=== PATIENT | female | born 1940 | race Caucasian/White ===

== ENCOUNTER → 2016-10-28 | Outpatient (CLI) | payer MEDICARE, MEDICAID ==
[~2016-10-28] MED LIST: AMARYL2 MG PO; AMITRIPTYLINE H10 M1 PO; AMLODIPINE BESYL5 MG PO; ASPIRIN81 M1; ATIVAN1 MG PO; ETODOLAC400 M1 PO; FLONASE ALLERG9.9 ML NS; FUROSEMIDE20 M1 PO; KCL; KLOR-CON 1010 ME1 PO; LISINOPRIL AND1 TA2; LORAZEPAM1 MG PO; LOSARTAN POTASS1 TA5 PO; MECLIZINE HCL12.5 MG PO; METFORMIN HCL500 MG PO; METFORMIN750 MG PO; METOPROLOL SR100 MG; METOPROLOL TART50 M1 PO; NAPROSYN500 MG; NEURONTIN300 MG PO; NORVASC10 MG; NOVOFINE DEVI; NOVOLOG MI100 UNIT/1 SQ; NOVOLOG100 U/ML; OMEPRAZOLE D/R20 MG PO; PRAVACHOL40 MG; SIMVASTATIN10 MG PO; XANAX XR0.5 MG; XANAX0.5 MG; ZITHROMAX250 MG PO; ZYRTEC10 MG PO
== END | disposition home or self-care (01) ==
LOC: RAD 17:24
DX: J44.9 Chronic obstructive pulmonary disease, unspecified (principal); R06.2 Wheezing; R05 Cough; R06.02 Shortness of breath

== ENCOUNTER → 2017-08-05 | Outpatient (CLI) | payer MEDICARE, MEDICAID | END | disposition home or self-care (01) | LOC: RAD 15:34 | DX: J98.11 Atelectasis (principal); J98.4 Other disorders of lung; E55.9 Vitamin D deficiency, unspecified; I10 Essential (primary) hypertension; E11.9 Type 2 diabetes mellitus without complications; Z87.891 Personal history of nicotine dependence ==

== ENCOUNTER 2017-10-29 20:56 | Emergency (ER) | payer MEDICARE, MEDICAID ==
[~2017-10-29] VITALS: Wt 108.9 kg
--- NOTE | ~2017-10-29 | EKG ---
[place], [place] ELECTROCARDIOGRAM REPORT NAME: DAVID ELKINS UNIT #: [id number] ROOM: DOCTOR: YULIANA ROSADO,PARDEEP BIRTHDATE: [birth year] DOS: 10/29/2017 TIME: 2102 hours. IMPRESSION: 1. Sinus rhythm. 2. Lateral ST-T changes. 3. Poor R-wave progression. 4. Normal QT interval. PARDEEP BRIDGES MD CM:EKGRPT:ELECTROCARDIOGRAM REPORT [id number] PARDEEP BRIDGES MD
[2017-10-29] MEDS ORDERED: HYDROXYZINE HCL25 M1 PO (21:17)
[2017-10-29] MEDS ORDERED: FLUOXETINE HYDR20 M1 PO (21:21)
[2017-10-29 21:29] LABS: BASO % 0.3 % (0.0-1.0); EOS # 0.1 10*3/uL (0.0-0.4); EOS % 0.7 % (1.0-4.0); HEMATOCRIT 38.6 % (37.0-47.0); HEMOGLOBIN 12.2 g/dl (12.0-16.0); LYMPH # 1.1 10*3/uL (1.3-4.4); LYMPH % 14.6 % (27.0-41.0); MEAN CELL VOLUME 80.4 fl (81.0-99.0); MEAN CORPUSCULAR HGB 25.4 pg (27.0-31.0); MEAN CORPUSCULAR HGB CONC 31.6 g/dl (33.0-37.0); MEAN PLATELET VOLUME 10.3 fl (9.6-12.3); MONO # 0.3 10*3/uL (0.1-1.0); MONO % 3.9 % (3.0-9.0); NEUT # 5.7 10*3/uL (2.3-7.9); NEUT % 80.1 % (47.0-73.0); PLATELET COUNT AUTOMATED 308 10*3/uL (130-400); RED CELL DISTRI WIDTH 14.8 % (0-14.5); WHITE BLOOD COUNT 7.2 10*3/uL (4.8-10.8)
[2017-10-29 21:39] LABS: ACT PARTIAL THROMBO TIME 22.1 SECONDS (20.8-31.5); INTERNATIONAL NORM RATIO 0.9 (2.0-3.5)
[2017-10-29 21:45] LABS: ALBUMIN 3.5 gm/dl (3.1-4.5); CREATININE 1.59 mg/dL (0.55-1.02); POTASSIUM 4.4 mmol/L (3.5-5.1); TOTAL PROTEIN 7.3 gm/dL (6.4-8.2)
[2017-10-29 21:47] LABS: TROPONIN I 10.5 ng/ml (<0.045)
== END 2017-10-30 01:05 | disposition short-term general hospital (02) ==
LOC: ED 20:56
PROVIDERS: Emergency Medicine
DX: I21.4 Non-ST elevation (NSTEMI) myocardial infarction (principal); Z79.899 Other long term (current) drug therapy; Z79.4 Long term (current) use of insulin; Z88.2 Allergy status to sulfonamides

== ENCOUNTER 2017-11-26 08:26 | Inpatient (IN) | payer MEDICARE, MEDICAID ==
[2017-11-26] VITALS (7 sets, daily range): BP systolic 112–160; BP diastolic 52–65
[~2017-11-26] VITALS: Ht 154.9 cm; Wt 103.6 kg
--- NOTE | ~2017-11-26 | CON ---
[place], [place] REPORT OF CONSULTATION NAME: DAVID ELKINS UNIT #: [id number] ROOM: 512 DOCTOR: ELIECER ROSADOCHRIS BIRTHDATE: [birth year] DOS: 11/26/2017 REASON FOR CONSULTATION: Heartburn with a known history of recent myocardial infarction and stent placement. HISTORY OF PRESENT ILLNESS: The patient is an elderly female 77-year-old with recent stent placement with a non-STEMI about [address] Miller; woke up this morning with chest burning. The patient took nitroglycerin without relief and came to the Emergency Room and she was given nitro and also GI cocktail and since that time, she is feeling better. The patient states that this is different than what she had ____. The patient had no acute EKG changes suggestion of myocardial injury or infarction. PAST MEDICAL HISTORY: Hypertension, hyperlipidemia, diabetes mellitus, recent stent placement, coronary artery disease, aneurysm, and CVA. MEDICATIONS: The patient is on metoprolol, furosemide, metformin, amlodipine, gabapentin, losartan, Imdur and clopidogrel. ALLERGIES: None. SOCIAL HISTORY: Former smoker. REVIEW OF SYSTEMS: CONSTITUTIONAL: No fever, no chills. HEENT: No visual disturbances or hearing problems. CARDIOVASCULAR: As per HPI. GASTROINTESTINAL: No nausea, no vomiting. GENITOURINARY: No dysuria, hematuria. NEUROLOGIC: Stable. PHYSICAL EXAMINATION: GENERAL: The patient is alert, oriented x 3. HEENT: Unremarkable. NECK: Supple, no JVD. LUNGS: Clear. HEART: Sounds are regular. ABDOMEN: Soft, obese. EXTREMITIES: Intact pulses. NEUROLOGIC: Stable. LABORATORY DATA: Hemoglobin 11.6, hematocrit is 36, and platelet count is normal. Creatinine is 1.45. INR is 0.9 and BUN is 28. Troponin is normal. EKG reported normal, but I do not see that in the chart. I am going to review that. IMPRESSION: The patient with recent stent placement with heartburn. The patient states that it is different than before. RECOMMENDATIONS: Increase the nitroglycerin, Imdur from 30 to 60 mg. Also add [place], [place] REPORT OF CONSULTATION NAME: ADVID ELKINS UNIT #: [id number] ROOM: 512 DOCTOR: CHRIS GONZÁLES MD BIRTHDATE: [birth year] PPI. Do serial enzymes. Monitor EKGs very closely. Rule out CA protocol. Continue the aspirin, Plavix, beta blockers, lisinopril, PARMINDER inhibitors, lipid lowering agents, core measures and I will follow up. Try to get the intervention report from [place]. CHRIS GONZÁLES MD CM:CONSTR:REPORT OF CONSULTATION 1039 11/26/17 1315 interface
[~2017-11-26 08:26] MED LIST changes: +FLUOXETINE HYDR20 M1 PO; +HYDROXYZINE HCL25 M1 PO
[2017-11-26 08:45] LABS: BASO % 0.4 % (0.0-1.0); EOS # 0.1 10*3/uL (0.0-0.4); HEMOGLOBIN 11.6 g/dl (12.0-16.0); LYMPH # 1.2 10*3/uL (1.3-4.4); LYMPH % 25.7 % (27.0-41.0); MEAN CELL VOLUME 80.4 fl (81.0-99.0); MEAN CORPUSCULAR HGB 25.9 pg (27.0-31.0); MEAN CORPUSCULAR HGB CONC 32.2 g/dl (33.0-37.0); MEAN PLATELET VOLUME 9.5 fl (9.6-12.3); MONO # 0.4 10*3/uL (0.1-1.0); MONO % 8.4 % (3.0-9.0); NEUT # 2.9 10*3/uL (2.3-7.9); NEUT % 62.1 % (47.0-73.0); PLATELET COUNT AUTOMATED 243 10*3/uL (130-400); RED BLOOD COUNT 4.48 10*6/uL (4.10-5.10); RED CELL DISTRI WIDTH 15.3 % (0-14.5); WHITE BLOOD COUNT 4.6 10*3/uL (4.8-10.8)
[2017-11-26 08:55] LABS: ACT PARTIAL THROMBO TIME 22.8 SECONDS (20.8-31.5); INTERNATIONAL NORM RATIO 0.9 (2.0-3.5)
[2017-11-26 09:02] LABS: ALBUMIN 3.6 gm/dl (3.1-4.5); ALKALINE PHOSPHATASE 73 U/L (45-117); BUN 28 mg/dl (7-24); CHLORIDE 102 mmol/L (98-107); CREATININE 1.45 mg/dL (0.55-1.02); POTASSIUM 4.2 mmol/L (3.5-5.1); SGOT/AST 16 IU/L (3-35); SGPT/ALT 24 U/L (12-78); SODIUM 138 mmol/L (136-145); TOTAL PROTEIN 7.1 gm/dL (6.4-8.2)
[2017-11-26 09:06] LABS: TROPONIN I < 0.015 ng/ml (<0.045)
[2017-11-26] MEDS ORDERED: NEURONTIN400 MG PO (09:42)
[2017-11-26] MEDS ORDERED: ISOSORBIDE MONO30 MG PO (09:45)
[2017-11-26] MEDS ORDERED: LIPITOR40 MG PO (09:46)
[2017-11-26] MEDS ORDERED: CLOPIDOGREL75 MG PO (09:46)
[2017-11-26] MEDS ORDERED: LOPRESSOR25 MG PO (09:48)
[2017-11-26] MEDS ORDERED: ASPIRIN81 M1 PO (11:16)
[2017-11-26] MEDS ORDERED: AMARYL4 MG PO (11:22)
[2017-11-26] MEDS ORDERED: HYDROXYZINE HCL25 MG PO (11:24)
[2017-11-26] MEDS ORDERED: IMDUR SA60 M1 PO (15:08)
[2017-11-26] MEDS ORDERED: NITROSTAT0.4 MG SL (15:08)
[2017-11-26 15:15] LABS: BILIRUBIN NEGATIVE (NEGATIVE); BLOOD NEGATIVE (NEGATIVE); CLARITY CLEAR (CLEAR); COLOR YELLOW (YELLOW); GLUCOSE NEGATIVE (NEGATIVE); KETONE NEGATIVE (NEGATIVE); LEUKO ESTERASE 1+ (NEGATIVE); NITRITE NEGATIVE (NEGATIVE); SPECIFIC GRAVITY 1.015 (1.005-1.030)
[2017-11-26 15:29] LABS: EPITHELIAL CELLS 0-2; RBC 0-2 rbc/hpf (0-2)
[2017-11-26 15:30] LABS: BACTERIA 2+
== END 2017-11-26 16:25 | disposition home or self-care (01) | DRG 205 ==
LOC: ED 08:26 → EDHOLD 09:35 → 5E 09:42
PROVIDERS: Emergency Medicine; Internal Medicine
DX: M94.0 Chondrocostal junction syndrome [Tietze] (principal); N17.0 Acute kidney failure with tubular necrosis; J18.9 Pneumonia, unspecified organism; Z68.41 Body mass index [BMI] 40.0-44.9, adult; E11.42 Type 2 diabetes mellitus with diabetic polyneuropathy; E11.65 Type 2 diabetes mellitus with hyperglycemia; D50.9 Iron deficiency anemia, unspecified; D72.819 Decreased white blood cell count, unspecified; D72.810 Lymphocytopenia; I25.10 Atherosclerotic heart disease of native coronary artery without angina pectoris; I10 Essential (primary) hypertension; E78.5 Hyperlipidemia, unspecified; F41.9 Anxiety disorder, unspecified; K21.9 Gastro-esophageal reflux disease without esophagitis; E66.01 Morbid (severe) obesity due to excess calories; Z87.891 Personal history of nicotine dependence; Z82.49 Family history of ischemic heart disease and other diseases of the circulatory system; Z79.4 Long term (current) use of insulin; Z80.3 Family history of malignant neoplasm of breast; Z88.2 Allergy status to sulfonamides; Z79.899 Other long term (current) drug therapy; Z79.82 Long term (current) use of aspirin; Z95.5 Presence of coronary angioplasty implant and graft; Z90.49 Acquired absence of other specified parts of digestive tract; I25.2 Old myocardial infarction; Z83.3 Family history of diabetes mellitus; Z82.3 Family history of stroke

== ENCOUNTER → 2018-01-11 | Outpatient (CLI) | payer MEDICARE, MEDICAID ==
[~2018-01-11] MED LIST changes: +AMARYL4 MG PO; +ASPIRIN81 M1 PO; +CLOPIDOGREL75 MG PO; +HYDROXYZINE HCL25 MG PO; +IMDUR SA60 M1 PO; +ISOSORBIDE MONO30 MG PO; +LIPITOR40 MG PO; +LOPRESSOR25 MG PO; +NEURONTIN400 MG PO; +NITROSTAT0.4 MG SL
[2018-01-11 09:38] LABS: BASO % 0.4 % (0.0-1.0); EOS # 0.2 10*3/uL (0.0-0.4); EOS % 3.4 % (1.0-4.0); HEMATOCRIT 36.7 % (37.0-47.0); HEMOGLOBIN 11.6 g/dl (12.0-16.0); LYMPH # 1.2 10*3/uL (1.3-4.4); LYMPH % 24.9 % (27.0-41.0); MEAN CELL VOLUME 81.9 fl (81.0-99.0); MEAN CORPUSCULAR HGB 25.9 pg (27.0-31.0); MEAN CORPUSCULAR HGB CONC 31.6 g/dl (33.0-37.0); MEAN PLATELET VOLUME 9.7 fl (9.6-12.3); MONO # 0.4 10*3/uL (0.1-1.0); MONO % 7.5 % (3.0-9.0); NEUT % 63.6 % (47.0-73.0); PLATELET COUNT AUTOMATED 241 10*3/uL (130-400); RED BLOOD COUNT 4.48 10*6/uL (4.10-5.10); RED CELL DISTRI WIDTH 15.8 % (0-14.5); WHITE BLOOD COUNT 4.7 10*3/uL (4.8-10.8)
[2018-01-11 09:39] LABS: BILIRUBIN 1+ (NEGATIVE); BLOOD NEGATIVE (NEGATIVE); CLARITY CLEAR (CLEAR); COLOR YELLOW (YELLOW); GLUCOSE NEGATIVE (NEGATIVE); KETONE NEGATIVE (NEGATIVE); NITRITE NEGATIVE (NEGATIVE); PH 5.5 (5.0-9.0); SPECIFIC GRAVITY 1.025 (1.005-1.030)
[2018-01-11 09:40] LABS: LEUKO ESTERASE NEGATIVE (NEGATIVE)
[2018-01-11 09:48] LABS: BACTERIA TRACE; EPITHELIAL CELLS 45-50; RBC 0-2 rbc/hpf (0-2)
[2018-01-11 10:09] LABS: ALBUMIN 3.6 gm/dl (3.1-4.5); CREATININE 1.32 mg/dL (0.55-1.02); POTASSIUM 4.1 mmol/L (3.5-5.1); URIC ACID 5.9 mg/dL (2.6-6.0)
== END | disposition home or self-care (01) ==
LOC: LAB 09:04
PROVIDERS: Internal Medicine Nephrology
DX: N28.9 Disorder of kidney and ureter, unspecified (principal)

== ENCOUNTER 2020-05-24 12:51 | Inpatient (IN) | payer MEDICARE, MEDICAID ==
[~2020-05-24] VITALS: Ht 157 cm; Wt 110.4 kg
[2020-05-24] VITALS (7 sets, daily range): BP systolic 130–156; BP diastolic 49–68
[2020-05-24 13:37] LABS: BASO % 0.2 % (0.0-1.0); EOS # 0.1 10*3/uL (0.0-0.4); EOS % 2.1 % (1.0-4.0); HEMATOCRIT 36.9 % (37.0-47.0); LYMPH # 0.8 10*3/uL (1.3-4.4); LYMPH % 18.9 % (27.0-41.0); MEAN CELL VOLUME 88.9 fl (81.0-99.0); MEAN CORPUSCULAR HGB 26.5 pg (27.0-31.0); MEAN CORPUSCULAR HGB CONC 29.8 g/dl (33.0-37.0); MEAN PLATELET VOLUME 9.3 fl (9.6-12.3); MONO # 0.3 10*3/uL (0.1-1.0); MONO % 6.4 % (3.0-9.0); NEUT % 72.2 % (47.0-73.0); PLATELET COUNT AUTOMATED 218 10*3/uL (130-400); RED BLOOD COUNT 4.15 10*6/uL (4.10-5.10); RED CELL DISTRI WIDTH 14.6 % (0-14.5); WHITE BLOOD COUNT 4.2 10*3/uL (4.8-10.8)
[2020-05-24 13:48] LABS: ACT PARTIAL THROMBO TIME 26.7 SECONDS (20.0-32.1); INTERNATIONAL NORM RATIO 0.9 (2.0-3.5)
[2020-05-24 13:58] LABS: ALBUMIN 3.1 gm/dl (3.1-4.5); ALKALINE PHOSPHATASE 69 U/L (45-117); BUN 19 mg/dl (7-24); CHLORIDE 106 mmol/L (98-107); CREATININE 1.05 mg/dL (0.55-1.02); POTASSIUM 4.9 mmol/L (3.5-5.1); SGOT/AST 7 IU/L (3-35); SGPT/ALT 14 U/L (12-78); SODIUM 140 mmol/L (136-145); TOTAL PROTEIN 6.8 gm/dL (6.4-8.2)
[2020-05-24 13:59] LABS: TROPONIN I < 0.015 ng/ml (<0.045)
--- NOTE | 2020-05-24 14:30 | NUR ---
THE PATIENT DENIES ANY OPEN WOUNDS. SHE DOES ADMIT TO HAVING PSORSIS
--- NOTE | 2020-05-24 14:55 | NUR ---
THE IV INFILTRATED DURING ADMINISTRATION OF LASIX.
--- NOTE | 2020-05-24 15:21 | NUR ---
I CALLED THE RECIEVING NURSE TO LET HER KNOW THE PATIENTS IV INFILTRATED AND THAT SOON ONE IS OBTAINED I WILL BRING THE PATIENT TO THE FLOOR
--- NOTE | 2020-05-24 16:30 | NUR ---
A 79, admitted to , under the services of MAE Bunch DO with a diagnosis of CHF. Chief complaint is SOB, CHEST HEAVINESS. Patient arrived via wheel chair from ER. Monitor applied. Initial assessment completed. Vital signs taken and recorded. MAE BUNCH DO notified of admission to the unit. Orders received. See assessment for past medical history, medications and allergies. Patient and/or family oriented to unit. [facility] visitation policy reviewed. Clothing/patient valuable form completed. ANDREW CASTRO
[2020-05-24] MEDS ORDERED: CRESTOR40 M1 PO (16:42)
[2020-05-24] MEDS ORDERED: LISINOPRIL2.5 MG PO (16:45)
[2020-05-24] MEDS ORDERED: XANAX0.5 MG PO (16:46)
--- NOTE | 2020-05-24 19:34 | NUR ---
24 HR CHART CHECK COMPLETE.
[2020-05-25] VITALS: BP 155/52
[2020-05-25 06:31] LABS: BASO % 0.2 % (0.0-1.0); EOS # 0.1 10*3/uL (0.0-0.4); EOS % 2.9 % (1.0-4.0); HEMATOCRIT 38.6 % (37.0-47.0); LYMPH # 0.7 10*3/uL (1.3-4.4); LYMPH % 14.6 % (27.0-41.0); MEAN CELL VOLUME 86.7 fl (81.0-99.0); MEAN CORPUSCULAR HGB 26.7 pg (27.0-31.0); MEAN CORPUSCULAR HGB CONC 30.8 g/dl (33.0-37.0); MEAN PLATELET VOLUME 9.5 fl (9.6-12.3); MONO # 0.3 10*3/uL (0.1-1.0); MONO % 6.7 % (3.0-9.0); NEUT # 3.6 10*3/uL (2.3-7.9); NEUT % 75.4 % (47.0-73.0); PLATELET COUNT AUTOMATED 234 10*3/uL (130-400); RED BLOOD COUNT 4.45 10*6/uL (4.10-5.10); RED CELL DISTRI WIDTH 14.4 % (0-14.5); WHITE BLOOD COUNT 4.8 10*3/uL (4.8-10.8)
[2020-05-25 07:01] LABS: ALBUMIN 3.5 gm/dl (3.1-4.5); CREATININE 1.1 mg/dL (0.55-1.02); POTASSIUM 4.1 mmol/L (3.5-5.1); TOTAL PROTEIN 7.4 gm/dL (6.4-8.2)
[2020-05-25 07:07] LABS: THYROID STIM HORMONE (HS) 2.76 uIU/ml (0.358-4.75)
[2020-05-25 07:31] LABS: VITAMIN D, 25-HYDROXY 81.9 ng/mL (30-100)
[2020-05-25 08:00] VITALS: BP 160/72
--- NOTE | 2020-05-25 08:00 | NUR ---
PATIENT SITTING UP IN BED, AWAKE, ALERT AND ORIENTED. DENIES PAIN AT THIS TIME. NO STATED COMPLAINTS. PATIENT IS PLEASANT AND COOPERATIVE WITH ASSESSMENT, SPEECH IS CLEAR AND APPROPRIATE. RESPIRATIONS ARE EASY AND REGULAR. 2L NASAL CANNULA INTACT. NO SOB NOTED AT REST. PT IS ABLE TO REPOSITION SELF AND IS ENCOURAGED TO DO SO. PT IS ALSO EDUCATED AT KEEPING FEET ELEVATED. BED IN LOWEST LOCKED POSITION AND CALL LIGHT WITHIN REACH. WILL CONTINUE TO MONITOR.
[2020-05-25 12:00] VITALS: BP 127/60
[2020-05-25 16:00] VITALS: BP 134/70
[2020-05-25 20:00] VITALS: BP 127/63
--- NOTE | 2020-05-25 20:00 | NUR ---
PT SITTING UP IN BED AT THIS TIME WATCHING TV. SHE STATES THAT SHE IS BEGINNING TO FEEL BETTER AND LESS SOB. RESPS ARE EASY AND NONLABORED. BED IS LOW, CALL LIGHT WITHIN REACH. WILL CONTINUE TO MONITOR.
[2020-05-26] VITALS: BP 129/47
[2020-05-26 06:35] LABS: CREATININE 1.2 mg/dL (0.55-1.02); POTASSIUM 4.3 mmol/L (3.5-5.1)
[2020-05-26 08:00] VITALS: BP 108/62
--- NOTE | 2020-05-26 08:00 | NUR ---
PATIENT ASLEEP IN BED BUT AWAKENS EASILY. NO STATED COMPLAINTS. DENIES PAIN. RESPIRATIONS ARE EASY AND REGULAR ON 2L BED IN LOWEST LOCKED POSITION, CALL LIGHT WITHIN REACH.
--- NOTE | 2020-05-26 09:00 | NUR ---
[employer] in to talk to patient. Patient states lives at home with family. There are 2 steps in the home. Physician: cristino kline Pharmacy: [facility] Home health services: none Patient's level of ADLs: INDEPENDENT Patient has working utilities: all working DME: home oxygen, from [facility] Follow-up physician's appointment after d/c: will be made by hospsitalist nruse director upon discharge Does patient want to access PORTAL?: n Discharge plan discussed with patient, she states she lives at home with family, she is independent in adls and ambulation, she states she has home oxygen from [facility] she wears 2l/min at hs, she states she is in the process of being qualified for a portable tanks, discussed with her a discharge plan and she stated she would return home when discharged, discussed with her [facility] and she declines any home needs at this time, case management will follow. ELISHA LARA
[2020-05-26 12:00] VITALS: BP 109/54
--- NOTE | 2020-05-26 14:29 | NUR ---
PT COMPLAINS OF INCREASED SWELLING, DECREASED OUTPUT AND CHEST DISCOMFORT. UPON ASSESSMENT EDEMA IS THE SAME, AND PT WAS ASKED TO SHOW WHERE THE CHEST DISCOMFORT WAS. PT INDICATES SIDE OF ABDOMINAL AREA. DR. POWER NOTIFIED. WILL CONTINUE TO MONITOR.
[2020-05-26 16:00] VITALS: BP 116/48
--- NOTE | 2020-05-26 16:00 | NUR ---
PT STATES SHE IS FEELING MUCH BETTER, AND IS NOT EXPERIENCING ANY CHEST/ABDOMEN DISCOMFORT. PT ENDUCATED ON ELEVATING FEET TO REDUCE SWELLING. NO STATED COMPLAINTS. DENIES PAIN. RESPIRATIONS ARE EASY AND REGULAR. 2L NC INTACT. BED IN LOWEST LOCKED POSITION AND CALL LIGHT WITHIN REACH.
[2020-05-26 20:00] VITALS: BP 112/52
[2020-05-27] VITALS: BP 98/60
--- NOTE | 2020-05-27 01:23 | NUR ---
PATIENT RESTING IN BED WITH RESPS EASY AND REGULAR. DENIES NEEDS AT THIS TIME. BED IN LOW POSITION, CALL LIGHT IN REACH
[2020-05-27 01:30] LABS: CLARITY SL CLOUDY (CLEAR); COLOR YELLOW (YELLOW)
[2020-05-27 01:33] LABS: BILIRUBIN NEGATIVE (NEGATIVE); BLOOD NEGATIVE (NEGATIVE); GLUCOSE NEGATIVE (NEGATIVE); KETONE NEGATIVE (NEGATIVE); LEUKO ESTERASE 2+ (NEGATIVE); NITRITE NEGATIVE (NEGATIVE); SPECIFIC GRAVITY 1.025 (1.005-1.030); UROBILINOGEN 0.2 E.U./dl (0.2-1.0)
[2020-05-27 01:37] LABS: WBC 51-100 wbc/hpf (0-5)
[2020-05-27 01:38] LABS: BACTERIA 2+; EPITHELIAL CELLS 21-30
[2020-05-27 06:44] LABS: CREATININE 1.32 mg/dL (0.55-1.02); POTASSIUM 3.9 mmol/L (3.5-5.1)
[2020-05-27 06:49] LABS: BASO % 0.2 % (0.0-1.0); EOS # 0.1 10*3/uL (0.0-0.4); EOS % 2.2 % (1.0-4.0); HEMATOCRIT 36.8 % (37.0-47.0); LYMPH # 0.7 10*3/uL (1.3-4.4); LYMPH % 17.6 % (27.0-41.0); MEAN CELL VOLUME 89.3 fl (81.0-99.0); MEAN CORPUSCULAR HGB 26.7 pg (27.0-31.0); MEAN CORPUSCULAR HGB CONC 29.9 g/dl (33.0-37.0); MEAN PLATELET VOLUME 9.8 fl (9.6-12.3); MONO # 0.3 10*3/uL (0.1-1.0); MONO % 7.2 % (3.0-9.0); NEUT % 72.6 % (47.0-73.0); PLATELET COUNT AUTOMATED 233 10*3/uL (130-400); RED BLOOD COUNT 4.12 10*6/uL (4.10-5.10); RED CELL DISTRI WIDTH 14.7 % (0-14.5); WHITE BLOOD COUNT 4.2 10*3/uL (4.8-10.8)
--- NOTE | 2020-05-27 07:41 | NUR ---
PAT IENT CURRENTLY OFF BIPAP. SPO2 93%, HR 91 ON 10L HFNC.
[2020-05-27 08:00] VITALS: BP 123/62
--- NOTE | 2020-05-27 09:30 | NUR ---
case management visits with patient, she states she is being discharged to home today, again educated her on the services provided by [facility] and she continues to decline any home needs, case management will follow
[2020-05-27] MEDS ORDERED: CIPRO500 MG PO (11:27)
[2020-05-27 12:00] VITALS: BP 120/73
--- NOTE | 2020-05-27 13:38 | NUR ---
Discharge instructions reviewed with patient/family. Patient receptive and verbalizes understanding. Follow-up care arranged. Written instructions given to patient/family. IV AND HEART MONITOR WERE REMOVED. PT HAD NO QUESTIONS AT DISCHARGE TIME. ELIZABET CINTRON
== END 2020-05-27 13:38 | disposition home or self-care (01) | DRG 291 ==
LOC: ED 12:51 → EDHOLD 14:15 → 4E 14:15
PROVIDERS: Emergency Medicine; Hospitalist; Internal Medicine; ADMIT Internal Medicine
DX: I11.0 Hypertensive heart disease with heart failure (principal); N17.0 Acute kidney failure with tubular necrosis; J96.01 Acute respiratory failure with hypoxia; N39.0 Urinary tract infection, site not specified; E87.1 Hypo-osmolality and hyponatremia; I50.33 Acute on chronic diastolic (congestive) heart failure; E66.01 Morbid (severe) obesity due to excess calories; K21.9 Gastro-esophageal reflux disease without esophagitis; E11.65 Type 2 diabetes mellitus with hyperglycemia; R07.89 Other chest pain; D64.9 Anemia, unspecified; E78.5 Hyperlipidemia, unspecified; E11.69 Type 2 diabetes mellitus with other specified complication; I25.10 Atherosclerotic heart disease of native coronary artery without angina pectoris; J45.909 Unspecified asthma, uncomplicated; E11.40 Type 2 diabetes mellitus with diabetic neuropathy, unspecified; Z68.36 Body mass index [BMI] 36.0-36.9, adult; Z79.4 Long term (current) use of insulin; I25.2 Old myocardial infarction; Z95.5 Presence of coronary angioplasty implant and graft; Z90.49 Acquired absence of other specified parts of digestive tract; Z87.891 Personal history of nicotine dependence; Z80.3 Family history of malignant neoplasm of breast; Z79.82 Long term (current) use of aspirin; Z79.899 Other long term (current) drug therapy; Z88.2 Allergy status to sulfonamides

== ENCOUNTER 2021-06-09 13:44 | Inpatient (IN) | payer MEDICARE, MEDICAID ==
[~2021-06-09] VITALS: Ht 156.2 cm; Wt 59.4 kg
[~2021-06-09 13:44] MED LIST changes: +CIPRO500 MG PO; +CRESTOR40 M1 PO; +LISINOPRIL2.5 MG PO; +XANAX0.5 MG PO
[2021-06-09 13:55] VITALS: BP 161/67
[2021-06-09 14:16] LABS: BASO % 0.2 % (0.0-1.0); EOS # 0.1 10*3/uL (0.0-0.4); EOS % 2.8 % (1.0-4.0); HEMATOCRIT 36.8 % (37.0-47.0); LYMPH # 0.7 10*3/uL (1.3-4.4); LYMPH % 14.9 % (27.0-41.0); MEAN CELL VOLUME 84.4 fl (81.0-99.0); MEAN CORPUSCULAR HGB 25.2 pg (27.0-31.0); MEAN CORPUSCULAR HGB CONC 29.9 g/dl (33.0-37.0); MEAN PLATELET VOLUME 8.8 fl (9.6-12.3); MONO # 0.3 10*3/uL (0.1-1.0); MONO % 6.6 % (3.0-9.0); NEUT # 3.5 10*3/uL (2.3-7.9); NEUT % 74.9 % (47.0-73.0); PLATELET COUNT AUTOMATED 235 10*3/uL (130-400); RED BLOOD COUNT 4.36 10*6/uL (4.10-5.10); RED CELL DISTRI WIDTH 15.9 % (0-14.5); WHITE BLOOD COUNT 4.7 10*3/uL (4.8-10.8)
[2021-06-09 14:32] LABS: ALBUMIN 3.6 gm/dl (3.1-4.5); ALKALINE PHOSPHATASE 63 U/L (45-117); BUN 17 mg/dl (7-24); CHLORIDE 100 mmol/L (98-107); CREATININE 1.09 mg/dL (0.55-1.02); POTASSIUM 4.8 mmol/L (3.5-5.1); SGOT/AST 11 IU/L (3-35); SGPT/ALT 18 U/L (12-78); SODIUM 135 mmol/L (136-145); TOTAL PROTEIN 7.5 gm/dL (6.4-8.2)
[2021-06-09 14:34] LABS: TROPONIN I < 0.015 ng/ml (<0.045)
[2021-06-09 15:10] LABS: BILIRUBIN Negative (Negative); BLOOD Negative (Negative); CLARITY Clear (Clear); COLOR Yellow (Yellow); GLUCOSE Negative (Negative); KETONE Negative (Negative); LEUKO ESTERASE 2+ (Negative); NITRITE Negative (Negative); SPECIFIC GRAVITY <= 1.005 (1.001-1.030)
[2021-06-09 15:34] LABS: BACTERIA TRACE; EPITHELIAL CELLS 0-2; RBC 0-2 rbc/hpf (0-2)
[2021-06-09 18:32] VITALS: BP 182/68
[2021-06-09] MEDS ORDERED: METFORMIN HYDR500 MG PO (19:08)
[2021-06-09] MEDS ORDERED: FLUOXETINE HYDR20 M1 PO (19:10)
[2021-06-09] MEDS ORDERED: GLUCOTROL10 MG PO (19:10)
[2021-06-09 21:25] VITALS: BP 156/49
[2021-06-09] MEDS ORDERED: Imdur SA60 MG PO (22:37)
[2021-06-10] VITALS: BP 127/73; BP 151/59
[2021-06-10 06:26] LABS: HEMATOCRIT 32.8 % (37.0-47.0); LYMPH # 0.4 10*3/uL (1.3-4.4); LYMPH % 9.6 % (27.0-41.0); MEAN CELL VOLUME 84.8 fl (81.0-99.0); MEAN CORPUSCULAR HGB 25.3 pg (27.0-31.0); MEAN CORPUSCULAR HGB CONC 29.9 g/dl (33.0-37.0); MEAN PLATELET VOLUME 9.8 fl (9.6-12.3); MONO # 0.2 10*3/uL (0.1-1.0); MONO % 4.4 % (3.0-9.0); NEUT # 3.3 10*3/uL (2.3-7.9); NEUT % 85.2 % (47.0-73.0); PLATELET COUNT AUTOMATED 251 10*3/uL (130-400); RED BLOOD COUNT 3.87 10*6/uL (4.10-5.10); RED CELL DISTRI WIDTH 15.8 % (0-14.5); WHITE BLOOD COUNT 3.9 10*3/uL (4.8-10.8)
[2021-06-10 06:37] LABS: ALBUMIN 3.1 gm/dl (3.1-4.5); BUN 20 mg/dl (7-24); CHLORIDE 101 mmol/L (98-107); CHOLESTEROL 131 mg/dL (<200); CREATININE 1.06 mg/dL (0.55-1.02); POTASSIUM 4.6 mmol/L (3.5-5.1); SGOT/AST 11 IU/L (3-35); SGPT/ALT 15 U/L (12-78); SODIUM 137 mmol/L (136-145); TOTAL PROTEIN 6.7 gm/dL (6.4-8.2); TRIGLYCERIDES 83 mg/dl (<150)
[2021-06-10 06:38] LABS: ALKALINE PHOSPHATASE 56 U/L (45-117); LDH 209 U/L (84-246); LDL CHOLESTEROL 73 mg/dL (9-159)
[2021-06-10 07:41] LABS: FERRITIN 8.3 ng/mL (10.0-291.0); VITAMIN D, 25-HYDROXY 122.6 ng/mL (30-100)
[2021-06-10 08:00] VITALS: BP 153/67; BP 158/70
[2021-06-10 12:00] VITALS: BP 183/72
[2021-06-10 16:00] VITALS: BP 160/70
[2021-06-10 20:00] VITALS: BP 183/71
[2021-06-11] VITALS: BP 136/53
[2021-06-11 07:11] LABS: BASO % 0.3 % (0.0-1.0); EOS % 0.5 % (1.0-4.0); HEMATOCRIT 32.8 % (37.0-47.0); LYMPH # 0.8 10*3/uL (1.3-4.4); LYMPH % 19.2 % (27.0-41.0); MEAN CELL VOLUME 85.6 fl (81.0-99.0); MEAN CORPUSCULAR HGB 25.1 pg (27.0-31.0); MEAN CORPUSCULAR HGB CONC 29.3 g/dl (33.0-37.0); MEAN PLATELET VOLUME 9.6 fl (9.6-12.3); MONO # 0.3 10*3/uL (0.1-1.0); MONO % 7.7 % (3.0-9.0); NEUT # 2.8 10*3/uL (2.3-7.9); PLATELET COUNT AUTOMATED 247 10*3/uL (130-400); RED BLOOD COUNT 3.83 10*6/uL (4.10-5.10); RED CELL DISTRI WIDTH 15.8 % (0-14.5); WHITE BLOOD COUNT 3.9 10*3/uL (4.8-10.8)
[2021-06-11 07:28] LABS: CHLORIDE 103 mmol/L (98-107); POTASSIUM 4.4 mmol/L (3.5-5.1); SODIUM 139 mmol/L (136-145)
[2021-06-11 07:34] LABS: BUN 24 mg/dl (7-24); CREATININE 1.03 mg/dL (0.55-1.02)
[2021-06-11 08:00] VITALS: BP 138/64
[2021-06-11 08:15] VITALS: BP 138/64
[2021-06-11] MEDS ORDERED: DIFLUCAN150 MG PO (11:07)
[2021-06-11] MEDS ORDERED: ZITHROMAX TRI-500 M1 PO (13:10)
== END 2021-06-11 13:46 | disposition home or self-care (01) | DRG 193 ==
LOC: ED 13:44 → EDHOLD 18:24 → 4E 18:24 → EDHOLD 19:06 → 4E 19:24
PROVIDERS: Family Medicine; Hospitalist; ADMIT Internal Medicine; ATTEND Internal Medicine
DX: J15.9 Unspecified bacterial pneumonia (principal); N17.0 Acute kidney failure with tubular necrosis; I50.32 Chronic diastolic (congestive) heart failure; J96.11 Chronic respiratory failure with hypoxia; Z68.41 Body mass index [BMI] 40.0-44.9, adult; N39.0 Urinary tract infection, site not specified; Z20.822 Contact with and (suspected) exposure to COVID-19; D72.819 Decreased white blood cell count, unspecified; E83.41 Hypermagnesemia; I25.10 Atherosclerotic heart disease of native coronary artery without angina pectoris; E66.01 Morbid (severe) obesity due to excess calories; I11.0 Hypertensive heart disease with heart failure; K21.9 Gastro-esophageal reflux disease without esophagitis; L40.9 Psoriasis, unspecified; D64.9 Anemia, unspecified; E78.5 Hyperlipidemia, unspecified; E11.42 Type 2 diabetes mellitus with diabetic polyneuropathy; Z79.4 Long term (current) use of insulin; Z99.81 Dependence on supplemental oxygen; Z90.49 Acquired absence of other specified parts of digestive tract; Z95.5 Presence of coronary angioplasty implant and graft; I25.2 Old myocardial infarction; Z87.891 Personal history of nicotine dependence; Z80.3 Family history of malignant neoplasm of breast; Z88.2 Allergy status to sulfonamides; Z79.82 Long term (current) use of aspirin; Z79.899 Other long term (current) drug therapy

== ENCOUNTER 2022-01-21 16:29 | Emergency (ER) | payer MEDICARE, MEDICAID ==
[~2022-01-21] VITALS: Wt 105.2 kg
[~2022-01-21 16:29] MED LIST changes: +DIFLUCAN150 MG PO; +GLUCOTROL10 MG PO; +Imdur SA60 MG PO; +KENALOG 0.025%15 GM T; +METFORMIN HYDR500 MG PO; +OXYGEN NAS; +PROTONIX40 MG PO; +ROPINIROLE HYDRO1 MG PO; +UNASYN 3GM3 GM/100 M IM; +VITAMIN D250 MCG PO; +ZITHROMAX TRI-500 M1 PO
[2022-01-21 16:57] LABS: EOS # 0.1 10*3/uL (0.0-0.4); EOS % 3.3 % (1.0-4.0); LYMPH # 0.7 10*3/uL (1.3-4.4); LYMPH % 17.2 % (27.0-41.0); MEAN CELL VOLUME 72.4 fl (81.0-99.0); MEAN CORPUSCULAR HGB 20.6 pg (27.0-31.0); MEAN CORPUSCULAR HGB CONC 28.5 g/dl (33.0-37.0); MEAN PLATELET VOLUME 8.7 fl (9.6-12.3); MONO # 0.3 10*3/uL (0.1-1.0); MONO % 6.9 % (3.0-9.0); NEUT % 72.4 % (47.0-73.0); PLATELET COUNT AUTOMATED 250 10*3/uL (130-400); RED BLOOD COUNT 3.73 10*6/uL (4.10-5.10); WHITE BLOOD COUNT 4.2 10*3/uL (4.8-10.8)
[2022-01-21 17:07] LABS: INTERNATIONAL NORM RATIO 0.9 (2.0-3.5)
[2022-01-21 17:19] LABS: CREATININE 1.97 mg/dL (0.55-1.02); POTASSIUM 4.7 mmol/L (3.5-5.1); TOTAL PROTEIN 6.6 gm/dL (6.4-8.2)
[2022-01-21 20:01] LABS: BILIRUBIN Negative (Negative); BLOOD Negative (Negative); CLARITY Clear (Clear); COLOR Yellow (Yellow); GLUCOSE 3+ (Negative); KETONE Negative (Negative); LEUKO ESTERASE Trace (Negative); NITRITE Negative (Negative); SPECIFIC GRAVITY 1.015 (1.001-1.030)
[2022-01-21 21:05] LABS: BACTERIA TRACE
[2022-01-21] MEDS ORDERED: ALBUTEROL2.5 MG/0.5 INH ×2 (21:09)
[2022-01-21] MEDS ORDERED: VIBRAMYCIN100 MG PO (21:09)
[2022-01-21] MEDS ORDERED: MEDROL DOSEPAK4 MG PO (21:09)
[2022-01-22] MEDS ORDERED: ALBUTEROL2.5 MG/0.5 INH (12:46)
== END 2022-01-21 21:22 | disposition home or self-care (01) ==
LOC: ED 16:29
PROVIDERS: Emergency Medicine; Physician Assistant
DX: J44.1 Chronic obstructive pulmonary disease with (acute) exacerbation (principal); Z87.891 Personal history of nicotine dependence; Z90.49 Acquired absence of other specified parts of digestive tract; Z79.899 Other long term (current) drug therapy; Z88.2 Allergy status to sulfonamides; Z99.81 Dependence on supplemental oxygen

== ENCOUNTER 2022-02-12 15:41 | Emergency (ER) | payer MEDICARE, MEDICAID ==
[~2022-02-12] VITALS: Ht 154.9 cm; Wt 105.2 kg
[~2022-02-12 15:41] MED LIST changes: +ALBUTEROL2.5 MG/0.5 INH; +MEDROL DOSEPAK4 MG PO; +VIBRAMYCIN100 MG PO
[2022-02-12 16:17] LABS: BASO % 0.3 % (0.0-1.0); EOS # 0.1 10*3/uL (0.0-0.4); EOS % 2.8 % (1.0-4.0); HEMATOCRIT 27.3 % (37.0-47.0); LYMPH # 0.8 10*3/uL (1.3-4.4); LYMPH % 20.8 % (27.0-41.0); MEAN CELL VOLUME 71.8 fl (81.0-99.0); MEAN CORPUSCULAR HGB 20.5 pg (27.0-31.0); MEAN CORPUSCULAR HGB CONC 28.6 g/dl (33.0-37.0); MEAN PLATELET VOLUME 8.4 fl (9.6-12.3); MONO # 0.4 10*3/uL (0.1-1.0); MONO % 8.9 % (3.0-9.0); NEUT # 2.6 10*3/uL (2.3-7.9); NEUT % 66.7 % (47.0-73.0); PLATELET COUNT AUTOMATED 219 10*3/uL (130-400); RED CELL DISTRI WIDTH 16.7 % (0-14.5); WHITE BLOOD COUNT 3.9 10*3/uL (4.8-10.8)
[2022-02-12 16:34] LABS: INTERNATIONAL NORM RATIO 0.9 (2.0-3.5)
[2022-02-12 17:20] LABS: CREATININE 1.53 mg/dL (0.55-1.02); POTASSIUM 4.6 mmol/L (3.5-5.1); TOTAL PROTEIN 6.8 gm/dL (6.4-8.2)
== END 2022-02-12 18:41 | disposition home or self-care (01) ==
LOC: ED 15:41
PROVIDERS: Family Medicine
DX: R06.02 Shortness of breath (principal); J45.909 Unspecified asthma, uncomplicated; Z88.2 Allergy status to sulfonamides; Z79.899 Other long term (current) drug therapy; Z87.891 Personal history of nicotine dependence

== ENCOUNTER → 2024-04-24 | Outpatient (CLI) | payer OTHER, MEDICAID ==
[~2024-04-24] MED LIST changes: +AMOXICILLIN500 M2 PO; +ASPIRIN ADULT L81 M1 PO; +ATIVAN0.5 MG PO; +BUMETANIDE1 MG PO; +BUMETANIDE2 MG PO; +BUPROPION HYDR150 M1 PO; +BUPROPION75 MG PO; +CEPHALEXIN500 M1 PO; +COLACE100 MG PO; +ENTRESTO 24 MG1 EACH PO; +IMDUR SA30 MG PO; +NITROGLYCERIN0.4 MG SL; +OZEMPIC0.25 MG/03 SQ; +SENNA8.6 MG PO; +TRAMADOL HCL50 MG PO; +TRULICITY1.5 MG/0.5 SC; +[UNRECOGNIZED DRUG - OTHER] PO
== END | disposition home or self-care (01) ==
LOC: RAD 15:15
PROVIDERS: ATTEND Nurse Practitioner
DX: R06.02 Shortness of breath (principal); I50.9 Heart failure, unspecified; J45.909 Unspecified asthma, uncomplicated; Z87.891 Personal history of nicotine dependence

== ENCOUNTER → 2024-05-10 | Outpatient (CLI) | payer OTHER, MEDICAID ==
[2024-05-10 13:10] LABS: BASO % 0.3 % (0.0-1.0); EOS # 0.1 10*3/uL (0.0-0.4); EOS % 2.7 % (1.0-4.0); HEMATOCRIT 33.5 % (37.0-47.0); LYMPH # 0.4 10*3/uL (1.3-4.4); LYMPH % 12.4 % (27.0-41.0); MEAN CELL VOLUME 96.5 fl (81.0-99.0); MEAN CORPUSCULAR HGB 28.8 pg (27.0-31.0); MEAN CORPUSCULAR HGB CONC 29.9 g/dl (33.0-37.0); MEAN PLATELET VOLUME 9.2 fl (9.6-12.3); MONO # 0.2 10*3/uL (0.1-1.0); NEUT # 2.3 10*3/uL (2.3-7.9); NEUT % 78.3 % (47.0-73.0); PLATELET COUNT AUTOMATED 183 10*3/uL (130-400); RED BLOOD COUNT 3.47 10*6/uL (4.10-5.10)
[2024-05-10 13:41] LABS: POTASSIUM 5.1 mmol/L (3.4-5.1)
[2024-05-10 13:45] LABS: VITAMIN D, 25-HYDROXY 135.6 ng/mL (30-100)
== END | disposition home or self-care (01) ==
LOC: LAB 12:46
PROVIDERS: ATTEND Internal Medicine Nephrology
DX: N18.30 Chronic kidney disease, stage 3 unspecified (principal); N25.81 Secondary hyperparathyroidism of renal origin; D63.1 Anemia in chronic kidney disease

== ENCOUNTER → 2024-05-11 | Outpatient (CLI) | payer OTHER, MEDICAID ==
[2024-05-11 13:24] LABS: BILIRUBIN Negative (Negative); BLOOD Negative (Negative); CLARITY Cloudy (Clear); COLOR Yellow (Yellow); GLUCOSE Trace (Negative); KETONE Negative (Negative); LEUKO ESTERASE 1+ (Negative); NITRITE Negative (Negative); PH 5.5 (4.5-8.0)
[2024-05-11 13:26] LABS: URINE CREATININE RANDOM 119.29 mg/dL
[2024-05-11 13:38] LABS: WBC 16-20 wbc/hpf (0-5)
[2024-05-11 13:39] LABS: BACTERIA 2+; EPITHELIAL CELLS 41-50
== END | disposition home or self-care (01) ==
LOC: LAB 12:06
PROVIDERS: ATTEND Internal Medicine Nephrology
DX: N25.81 Secondary hyperparathyroidism of renal origin (principal); N18.30 Chronic kidney disease, stage 3 unspecified; D63.1 Anemia in chronic kidney disease

== ENCOUNTER 2024-08-04 10:34 | Inpatient (IN) | payer OTHER, MEDICAID ==
[~2024-08-04] VITALS: Ht 152.4 cm; Wt 106.6 kg
[2024-08-04 10:37] VITALS: BP 130/41
[2024-08-04] MEDS ORDERED: Acetaminophen/Oxycodone 5 MG/325 MG TABLET PO ONE (10:45)
[2024-08-04 11:30] VITALS: BP 134/44
[2024-08-04 12:21] LABS: BASO % 0.3 % (0.0-1.0); EOS # 0.1 10*3/uL (0.0-0.4); EOS % 3.2 % (1.0-4.0); HEMATOCRIT 27.2 % (37.0-47.0); LYMPH # 0.3 10*3/uL (1.3-4.4); LYMPH % 8.4 % (27.0-41.0); MEAN CELL VOLUME 96.8 fl (81.0-99.0); MEAN CORPUSCULAR HGB 27.4 pg (27.0-31.0); MEAN CORPUSCULAR HGB CONC 28.3 g/dl (33.0-37.0); MONO # 0.3 10*3/uL (0.1-1.0); MONO % 7.8 % (3.0-9.0); PLATELET COUNT AUTOMATED 170 10*3/uL (130-400); RED BLOOD COUNT 2.81 10*6/uL (4.10-5.10); RED CELL DISTRI WIDTH 15.2 % (0-14.5); WHITE BLOOD COUNT 3.7 10*3/uL (4.8-10.8)
[2024-08-04 12:30] VITALS: BP 131/48
[2024-08-04 13:17] LABS: ABG O2 SATURATION 94.7 % (94.0-98.0); ARTERIAL BLOOD GAS PH 7.313 (7.350-7.450); ARTERIAL BLOOD GAS PO2 77.6 mmHg (83.0-108.0)
[2024-08-04 13:20] LABS: ABG BASE EXCESS 7.3 mmol/L (-2.0-3.0)
[2024-08-04] MEDS ORDERED: FUROSEMIDE 40 MG/4 ML VIAL IV ONE (13:25)
[2024-08-04] MEDS ORDERED: LORazepam 0.5 MG TAB PO PRN (14:20)
[2024-08-04] MEDS ORDERED: ACETAMINOPHEN 325 MG TAB PO PRN (14:25)
[2024-08-04] MEDS ORDERED: SODIUM CHLORIDE 0.9% 1,000 ML IV SCH (14:25)
[2024-08-04] MEDS ORDERED: Magnesium Hydroxide 30 ML UDC PO PRN (14:25)
[2024-08-04] MEDS ORDERED: ACETAMINOPHEN 650 MG SUPP R PRN (14:25)
[2024-08-04] MEDS ORDERED: Ondansetron Hydrochloride 4 MG/2 ML VIAL IV PRN (14:25)
[2024-08-04] MEDS ORDERED: MORPHINE Sulfate 2 MG/ML SYR IV PRN (14:25)
[2024-08-04] MEDS ORDERED: Acetaminophen/Hydrocodone 5 MG/325 MG TABLET PO PRN (14:25)
[2024-08-04] MEDS ORDERED: BISACODYL 5 MG TAB PO PRN (14:25)
[2024-08-04] MEDS ORDERED: BISACODYL 10 MG SUPP R PRN (14:25)
[2024-08-04] MEDS ORDERED: Ceftriaxone Sodium 10 ML IV SCH (15:30)
[2024-08-04] MEDS ORDERED: Albuterol Sulf/Ipratropium 3 ML VIAL NEB SCH (15:40)
[2024-08-04] MEDS ORDERED: AZITHROMYCIN 250 ML IV SCH (16:00)
[2024-08-04] MEDS ORDERED: NEURONTIN300 MG PO ×2 (16:27)
[2024-08-04] MEDS ORDERED: WELLBUTRIN SR150 MG PO (16:28)
[2024-08-04] MEDS ORDERED: TRAMADOL HCL50 MG PO (16:30)
[2024-08-04] MEDS ORDERED: NOVOLOG10 ML SC (16:31)
[2024-08-04] MEDS ORDERED: MIRALAX119 GM PO (16:31)
[2024-08-04] MEDS ORDERED: VENT7GM INH (16:32)
[2024-08-04] MEDS ORDERED: SENNA-LAX8.6 MG PO (16:33)
[2024-08-04] MEDS ORDERED: DULCOLAX STOOL100 M1 PO (16:33)
[2024-08-04] MEDS ORDERED: ONDANSETRON HYDR8 MG PO (16:35)
[2024-08-04] MEDS ORDERED: VITAMIN D31250 MCG PO (16:37)
[2024-08-04] MEDS ORDERED: DEXTROSE 10 % IN WATER 250 ML IV PRN (18:05)
[2024-08-04] MEDS ORDERED: LORazepam 2 MG/ML VIAL IV ONE (19:15)
[2024-08-04 19:36] VITALS: BP 138/37
[2024-08-04 20:41] VITALS: BP 119/89
[2024-08-04 21:06] LABS: BASO % 0.4 % (0.0-1.0); EOS # 0.1 10*3/uL (0.0-0.4); EOS % 3.4 % (1.0-4.0); HEMATOCRIT 26.4 % (37.0-47.0); LYMPH # 0.3 10*3/uL (1.3-4.4); LYMPH % 10.7 % (27.0-41.0); MEAN CELL VOLUME 95.7 fl (81.0-99.0); MEAN CORPUSCULAR HGB 27.9 pg (27.0-31.0); MEAN CORPUSCULAR HGB CONC 29.2 g/dl (33.0-37.0); MEAN PLATELET VOLUME 9.1 fl (9.6-12.3); MONO # 0.2 10*3/uL (0.1-1.0); MONO % 9.2 % (3.0-9.0); NEUT % 75.9 % (47.0-73.0); PLATELET COUNT AUTOMATED 175 10*3/uL (130-400); RED BLOOD COUNT 2.76 10*6/uL (4.10-5.10); RED CELL DISTRI WIDTH 15.5 % (0-14.5); WHITE BLOOD COUNT 2.6 10*3/uL (4.8-10.8)
[2024-08-04] MEDS ORDERED: INSULIN LISPRO 1 UNIT/0.01 ML SQ SCH (22:00)
[2024-08-04] MEDS ORDERED: NYSTATIN CREAM 15 GM TUBE T SCH (22:00)
[2024-08-04] MEDS ORDERED: HEPARIN SODIUM 5,000 UNIT/ML VIAL SC SCH (22:00)
[2024-08-04 22:12] LABS: ABG O2 SATURATION 86.7 % (94.0-98.0); ARTERIAL BLOOD GAS PH 7.308 (7.350-7.450); ARTERIAL BLOOD GAS PO2 57.8 mmHg (83.0-108.0)
[2024-08-04 22:17] LABS: ABG BASE EXCESS 9.3 mmol/L (-2.0-3.0)
[2024-08-04 23:55] VITALS: BP 144/48
[2024-08-05 04:00] VITALS: BP 118/33
[2024-08-05 06:05] LABS: EOS # 0.1 10*3/uL (0.0-0.4); EOS % 5.3 % (1.0-4.0); HEMATOCRIT 27.5 % (37.0-47.0); LYMPH # 0.4 10*3/uL (1.3-4.4); LYMPH % 16.7 % (27.0-41.0); MEAN CELL VOLUME 95.8 fl (81.0-99.0); MEAN CORPUSCULAR HGB 27.5 pg (27.0-31.0); MEAN CORPUSCULAR HGB CONC 28.7 g/dl (33.0-37.0); MEAN PLATELET VOLUME 9.4 fl (9.6-12.3); MONO # 0.2 10*3/uL (0.1-1.0); MONO % 9.6 % (3.0-9.0); NEUT # 1.4 10*3/uL (2.3-7.9); NEUT % 67.9 % (47.0-73.0); PLATELET COUNT AUTOMATED 185 10*3/uL (130-400); RED BLOOD COUNT 2.87 10*6/uL (4.10-5.10); RED CELL DISTRI WIDTH 15.1 % (0-14.5); WHITE BLOOD COUNT 2.1 10*3/uL (4.8-10.8)
[2024-08-05 06:14] LABS: POTASSIUM 4.6 mmol/L (3.4-5.1)
[2024-08-05 07:37] LABS: ABG O2 SATURATION 94.6 % (94.0-98.0); ARTERIAL BLOOD GAS PH 7.343 (7.350-7.450); ARTERIAL BLOOD GAS PO2 83.3 mmHg (83.0-108.0)
[2024-08-05 07:40] LABS: ABG BASE EXCESS 6.3 mmol/L (-2.0-3.0)
[2024-08-05 08:00] VITALS: BP 140/42
[2024-08-05] MEDS ORDERED: Metoprolol Tartrate 25 MG TAB PO SCH (10:00)
[2024-08-05] MEDS ORDERED: Pantoprazole Sodium 40 MG TAB PO SCH (10:00)
[2024-08-05] MEDS ORDERED: buPROPion Hydrochloride 75 MG TAB PO SCH ×3 (10:00→19:30)
[2024-08-05] MEDS ORDERED: XALKORI 250 MG PO SCH (10:00)
[2024-08-05] MEDS ORDERED: ATORVASTATIN CALCIUM 40 MG TABLET PO SCH (10:00)
[2024-08-05] MEDS ORDERED: BUMETANIDE 1 MG/4 ML VIAL IV SCH (10:00)
[2024-08-05] MEDS ORDERED: MIRALAX POWDER17 G1 PO (13:47)
[2024-08-05] MEDS ORDERED: Polyethylene Glycol 3350 17 GM PACKET PO PRN (13:50)
[2024-08-05 16:00] VITALS: BP 115/37
[2024-08-05 20:00] VITALS: BP 159/53; BP 171/92
[2024-08-05] MEDS ORDERED: buPROPion SR 150 MG TAB PO SCH ×2 (22:00)
[2024-08-06] VITALS: BP 159/54
[2024-08-06 04:00] VITALS: BP 149/60
[2024-08-06] MEDS ORDERED: LORazepam 2 MG/ML VIAL IV ONE ×3 (04:45→21:20)
[2024-08-06] MEDS ORDERED: LORazepam 2 MG/ML VIAL ONE (05:00)
[2024-08-06] MEDS ORDERED: LORazepam 2 MG/ML VIAL IV PRN (05:00)
[2024-08-06 06:11] LABS: BASO % 0.5 % (0.0-1.0); EOS # 0.1 10*3/uL (0.0-0.4); EOS % 4.7 % (1.0-4.0); HEMATOCRIT 27.8 % (37.0-47.0); LYMPH # 0.3 10*3/uL (1.3-4.4); LYMPH % 13.6 % (27.0-41.0); MEAN CELL VOLUME 94.2 fl (81.0-99.0); MEAN CORPUSCULAR HGB 27.8 pg (27.0-31.0); MEAN CORPUSCULAR HGB CONC 29.5 g/dl (33.0-37.0); MEAN PLATELET VOLUME 9.3 fl (9.6-12.3); MONO # 0.2 10*3/uL (0.1-1.0); MONO % 9.4 % (3.0-9.0); NEUT # 1.5 10*3/uL (2.3-7.9); NEUT % 71.8 % (47.0-73.0); PLATELET COUNT AUTOMATED 195 10*3/uL (130-400); RED BLOOD COUNT 2.95 10*6/uL (4.10-5.10); WHITE BLOOD COUNT 2.1 10*3/uL (4.8-10.8)
[2024-08-06 08:00] VITALS: BP 145/45
[2024-08-06] MEDS ORDERED: hydrOXYzine pamoate 25 MG CAP PO ONE (11:50)
[2024-08-06] MEDS ORDERED: DOCUSATE SODIUM 100 MG CAP PO PRN (11:50)
[2024-08-06] MEDS ORDERED: Albuterol Sulfate 2.5 MG/3 ML VIAL NEB PRN (11:50)
[2024-08-06 12:00] VITALS: BP 70/69
[2024-08-06] MEDS ORDERED: Albuterol Sulfate 2.5 MG/0.5 ML VIAL NEB SCH (12:00)
[2024-08-06] MEDS ORDERED: Menthol/Zinc Oxide 4 GM THIN T PRN (14:55)
[2024-08-06 16:00] VITALS: BP 108/46
[2024-08-06 16:00] LABS: BILIRUBIN Negative (Negative); BLOOD Negative (Negative); CLARITY Clear (Clear); COLOR Yellow (Yellow); GLUCOSE Negative (Negative); KETONE Negative (Negative); LEUKO ESTERASE Trace (Negative); NITRITE Negative (Negative); SPECIFIC GRAVITY <= 1.005 (1.001-1.030); UROBILINOGEN 0.2 E.U./dl (0.0-1.0)
[2024-08-06 18:19] LABS: ABG O2 SATURATION 94.4 % (94.0-98.0); ARTERIAL BLOOD GAS PH 7.354 (7.350-7.450); ARTERIAL BLOOD GAS PO2 77.1 mmHg (83.0-108.0)
[2024-08-06 18:20] LABS: ABG BASE EXCESS 5.9 mmol/L (-2.0-3.0)
[2024-08-06] MEDS ORDERED: Ziprasidone Mesylate 20 MG VIAL IM ONE (18:55)
[2024-08-06] MEDS ORDERED: Water, Sterile 10 ML VIAL IM ONE (19:00)
[2024-08-06] MEDS ORDERED: HEEL PROTECTOR DEVICE ONE (20:35)
[2024-08-06] MEDS ORDERED: Haloperidol Lactate 5 MG/ML AMP IM ONE (21:40)
[2024-08-06] MEDS ORDERED: GABAPENTIN 300 MG CAP PO SCH (22:00)
[2024-08-06] MEDS ORDERED: NYSTATIN 15 GM BOT T SCH (22:00)
[2024-08-06] MEDS ORDERED: Menthol/Zinc Oxide 4 GM THIN T SCH (22:00)
[2024-08-07] VITALS: BP 108/31
[2024-08-07 06:40] LABS: EOS % 1.3 % (1.0-4.0); HEMATOCRIT 26.7 % (37.0-47.0); LYMPH # 0.2 10*3/uL (1.3-4.4); LYMPH % 10.5 % (27.0-41.0); MEAN CELL VOLUME 92.7 fl (81.0-99.0); MEAN CORPUSCULAR HGB 28.8 pg (27.0-31.0); MEAN CORPUSCULAR HGB CONC 31.1 g/dl (33.0-37.0); MEAN PLATELET VOLUME 8.7 fl (9.6-12.3); MONO # 0.2 10*3/uL (0.1-1.0); MONO % 7.9 % (3.0-9.0); NEUT # 1.8 10*3/uL (2.3-7.9); NEUT % 79.9 % (47.0-73.0); PLATELET COUNT AUTOMATED 204 10*3/uL (130-400); RED BLOOD COUNT 2.88 10*6/uL (4.10-5.10); RED CELL DISTRI WIDTH 15.1 % (0-14.5); WHITE BLOOD COUNT 2.3 10*3/uL (4.8-10.8)
[2024-08-07 07:11] LABS: POTASSIUM 4.8 mmol/L (3.4-5.1)
[2024-08-07 08:00] VITALS: BP 119/45
[2024-08-07] MEDS ORDERED: Clopidogrel Hydrogen Sulfate 75 MG TAB PO SCH (10:00)
[2024-08-07] MEDS ORDERED: Sennosides A and B 8.6 MG TAB PO SCH (10:00)
[2024-08-07] MEDS ORDERED: ASPIRIN, CHEWABLE 81 MG TAB PO SCH (10:00)
[2024-08-07] MEDS ORDERED: MORPHINE Sulfate 2 MG/ML SYR IV ONE (11:10)
[2024-08-07 12:00] VITALS: BP 101/86
[2024-08-07] MEDS ORDERED: Albuterol Sulf/Ipratropium 3 ML VIAL NEB PRN (15:30)
== END 2024-08-07 14:47 | DRG 177 ==
LOC: ED 10:34 → 4E 13:48 → ICCU 13:48 → EDHOLD 13:48 → ICCU 19:49 → 4E 08-05 20:07
PROVIDERS: Emergency Medicine; Internal Medicine; Internal Medicine Pulmonary Disease; Nurse Practitioner Family; Student in an Organized Health Care Education/Training Program; ADMIT Internal Medicine; ATTEND Internal Medicine
PROC: 5A09357 Assistance with Respiratory Ventilation, Less than 24 Consecutive Hours, Continuous Positive Airway Pressure (ICD-10-PCS; principal; 2024-08-04)
PROC: 5A09357 Assistance with Respiratory Ventilation, Less than 24 Consecutive Hours, Continuous Positive Airway Pressure (ICD-10-PCS; 2024-08-05)
PROC: 5A0935A Assistance with Respiratory Ventilation, Less than 24 Consecutive Hours, High Flow/Velocity Cannula (ICD-10-PCS; 2024-08-06)
DX: J69.0 Pneumonitis due to inhalation of food and vomit (principal); I50.33 Acute on chronic diastolic (congestive) heart failure; N17.0 Acute kidney failure with tubular necrosis; J96.01 Acute respiratory failure with hypoxia; J96.02 Acute respiratory failure with hypercapnia; I13.0 Hypertensive heart and chronic kidney disease with heart failure and stage 1 through stage 4 chronic kidney disease, or unspecified chronic kidney disease; N18.4 Chronic kidney disease, stage 4 (severe); C34.90 Malignant neoplasm of unspecified part of unspecified bronchus or lung; C18.9 Malignant neoplasm of colon, unspecified; J44.0 Chronic obstructive pulmonary disease with (acute) lower respiratory infection; Z68.42 Body mass index [BMI] 45.0-49.9, adult; Z20.822 Contact with and (suspected) exposure to COVID-19; D64.9 Anemia, unspecified; Z66 Do not resuscitate; I25.10 Atherosclerotic heart disease of native coronary artery without angina pectoris; E11.22 Type 2 diabetes mellitus with diabetic chronic kidney disease; E11.40 Type 2 diabetes mellitus with diabetic neuropathy, unspecified; K21.9 Gastro-esophageal reflux disease without esophagitis; I25.5 Ischemic cardiomyopathy; E11.65 Type 2 diabetes mellitus with hyperglycemia; E11.42 Type 2 diabetes mellitus with diabetic polyneuropathy; D72.819 Decreased white blood cell count, unspecified; S31.829A Unspecified open wound of left buttock, initial encounter; S31.819A Unspecified open wound of right buttock, initial encounter; S09.90XA Unspecified injury of head, initial encounter; E66.01 Morbid (severe) obesity due to excess calories; Z88.2 Allergy status to sulfonamides; Z79.899 Other long term (current) drug therapy; Z79.01 Long term (current) use of anticoagulants; Z79.2 Long term (current) use of antibiotics; Z90.49 Acquired absence of other specified parts of digestive tract; Z87.891 Personal history of nicotine dependence; Z71.89 Other specified counseling; Z83.3 Family history of diabetes mellitus; Z79.4 Long term (current) use of insulin; Z80.1 Family history of malignant neoplasm of trachea, bronchus and lung; Z82.3 Family history of stroke; W18.39XA Other fall on same level, initial encounter; Y93.89 Activity, other specified; Y92.89 Other specified places as the place of occurrence of the external cause; Y99.8 Other external cause status